=== PATIENT | male | born 1960 | race African-American/Black ===

== ENCOUNTER 2018-08-26 09:30 | Outpatient (CLI) | payer OTHER | END 2018-08-26 23:59 | disposition home or self-care (01) | LOC: CARD 09:30 | PROVIDERS: ATTEND Family Medicine | DX: G56.01 Carpal tunnel syndrome, right upper limb (principal); E78.5 Hyperlipidemia, unspecified; I10 Essential (primary) hypertension | CPT/HCPCS: 95907 ==